=== PATIENT | female | born 2000 | race Caucasian/White ===

== ENCOUNTER 2018-07-06 18:38 | Emergency (ER) | payer OTHER ==
[~2018-07-06] VITALS: Ht 154.9 cm; Wt 47.6 kg
--- NOTE | 2018-07-06 19:29 | ED Fall/Injury ---
General Chief Complaint: Upper Extremity Stated Complaint: FALL,R SHOULDER PAIN Source: patient, other Exam Limitations: no limitations History of Present Illness Date Seen by Provider: Jul 06, 2018 Time Seen by Provider: 19:20 Initial Comments Patient presents to ER by private conveyance with chief complaint 3 hours ago she was walking slipped on some ice landing on her right shoulder. She denies striking her head or loss of consciousness. 2 years ago she had a labor repair on her right shoulder. She's had some pain in her right shoulder that's tolerable. She has not taken anything for nor use ice. She has just been splinting her right arm to her side. She has no cough or dyspnea fevers chills etc. Allergies and Home Medications Patient Home Medication List Home Medication List Reviewed: Yes Review of Systems Review of Systems Constitutional: No chills, No diaphoresis Eyes: Denies Blindness, Denies Blurred Vision Ears, Nose, Mouth, Throat: denies ear pain, denies ear discharge Respiratory: No cough, No short of breath Cardiovascular: No chest pain, No edema Gastrointestinal: No abdominal pain, No constipation, No diarrhea Past Wkykktk-Vhmmhg-Wwgjjb Hx Patient Social History Alcohol Use: Denies Use Recreational Drug Use: No Smoking Status: Never a Smoker Recent Foreign Travel: No Contact w/Someone Who Travel: No Physical Exam Vital Signs Vital Signs - First Documented 07/06/18 19:22 Temp 97.3 Pulse 87 Resp 16 B/P (MAP) 114/77 O2 Delivery Room Air Capillary Refill : Height, Weight, BMI Height: '" Weight: lbs. oz. kg; BMI Method: General Appearance: WD/WN, no apparent distress HEENT: PERRL/EOMI, normal ENT inspection, pharynx normal Cardiovascular: normal peripheral pulses, regular rate, rhythm Respiratory: no respiratory distress, no accessory muscle use Peripheral Pulses: 2+ Radial Pulses (R), 2+ Radial Pulses (L) Extremities: normal capillary refill, other (limited range of motion in the right shoulder secondary to pain. Mild a tender anterior and posterior glenohumeral joint. No crepitus. No erythema or deformity. Elbow wrist unremarkable. No evidence of tendon dysfunction.) Neurologic/Psychiatric: no motor/sensory deficits, alert, oriented x 3 Skin: normal color, warm/dry, other (old healed scars of the right shoulder unremarkable.) Progress/Results/Core Measures Results/Orders My Orders Orders - JUAQUIN ISSA Shoulder, Right, 3 Views (07/06/18 19:27) Vital Signs/I&O 07/06/18 19:22 Temp 97.3 Pulse 87 Resp 16 B/P (MAP) 114/77 O2 Delivery Room Air Progress Progress Note : Time: 20:21 Progress Note The patient is planning on going home this weekend and then she can follow-up with her orthopedic surgery in the [place] next week. We have discussed management and range of motion exercises. We'll provide her with a disc so she can have the images compared to her recent shoulder images and this just the lucency on the humerus with her orthopedic surgeon as well. Diagnostic Imaging Diagonstic Imaging: Xray Plain Films/CT/US/NM/MRI: other (right shoulder) Comments Small distal tip of the scapula nondisplaced closed fracture. Small probably benign lucency of the greater tuberosity of the humerus. [facility], [place] NAME: MARIPOSA [facility] REC#: [id number] PT STATUS: REG ER : 2000 PHYSICIAN: JUAQUIN ISSA MD ADMIT DATE: 07/06/18/ER Draft Date of Exam:07/06/18 SHOULDER, RIGHT, 3 VIEWS INDICATION: Injury, shoulder pain. EXAMINATION: Right shoulder at 7:44 p.m. Three views were obtained. FINDINGS: There is no fracture, dislocation or acute bony abnormality of the shoulder joint, itself. However on the Y-view there is a linear lucency extending through the inferior most portion of the scapula. This finding is suspicious for a fracture. If further evaluation is desired, then CT would be recommended. The shoulder joint is fairly well-maintained. There is a lucency overlying the greater tuberosity. This of uncertain etiology but could be related to a bone cyst. This finding could also be further evaluated by CT. IMPRESSION: 1. The findings do suggest a nondisplaced fracture involving the tip of the scapula. Recommendations as above. 2. The lucency within the greater tuberosity is most likely a benign process. 3. These results were discussed with Dr. Juaquin Issa. Dictated on workstation # [id number] Dict: 07/06/182009 Trans: 07/06/182019 [facility] [id number] Interpreted by: ETHAN HADDAD MD Electronically signed by: Reviewed: Reviewed by Me, Discussed w/Radiologist Departure Impression Primary Impression: Right shoulder pain Qualified Codes: M25.511 - Pain in right shoulder Additional Impressions: Fall Qualified Codes: W19.XXXA - Unspecified fall, initial encounter Closed nondisplaced fracture of right scapula Disposition: HOME, SELF-CARE Condition: Stable Departure-Patient Inst. Decision time for Depature: 20:46 Referrals: NO,LOCAL PHYSICIAN (PCP/Family) Primary Care Physician Patient Instructions: Shoulder Blade Fracture (DC) Add. Discharge Instructions: Keep your arm moving multiple times throughout the day to prevent a frozen shoulder. Use Tylenol 1000 mg every 8 hours in addition to ibuprofen 800 mg every 8 hours as needed for pain. Follow-up next week with the orthopedic surgeon or primary care doctor to manage your fracture. All discharge instructions reviewed with patient and/or family. Voiced understanding. Work/School Note: Work Release Form Date Seen in the Emergency Department: Jul 06, 2018 Return to Work: Jul 07, 2018 Restrictions: Need Release from Doctor Other Restrictions Listed Below: No lifting with right arm JUAQUIN ISSA Jul 06, 2018 19:29
--- NOTE | 2018-07-06 20:21 | Diagnostic Imaging Report ---
INDICATION: Injury, shoulder pain. EXAMINATION: Right shoulder at 7:44 p.m. Three views were obtained. FINDINGS: There is no fracture, dislocation or acute bony abnormality of the shoulder joint, itself. However on the Y-view there is a linear lucency extending through the inferior most portion of the scapula. This finding is suspicious for a fracture. If further evaluation is desired, then CT would be recommended. The shoulder joint is fairly well-maintained. There is a lucency overlying the greater tuberosity. This of uncertain etiology but could be related to a bone cyst. This finding could also be further evaluated by CT. IMPRESSION: 1. The findings do suggest a nondisplaced fracture involving the tip of the scapula. Recommendations as above. 2. The lucency within the greater tuberosity is most likely a benign process. 3. These results were discussed with Dr. Juaquin Issa. Dictated by: Dictated on workstation # [id number]
== END 2018-07-06 21:13 | disposition home or self-care (01) ==
LOC: ER 18:40
DX: S42.191A Fracture of other part of scapula, right shoulder, initial encounter for closed fracture (principal); W00.9XXA Unspecified fall due to ice and snow, initial encounter
CPT/HCPCS: 73030